=== PATIENT | female | born 1995 | race Hispanic/Latino ===

== ENCOUNTER 2019-10-15 23:46 | Emergency (ER) | payer BC, OTHER ==
--- OUTSIDE RECORDS SUMMARY | 2019-10-15 23:48 | XMS REPORT ---
:1995 [facility] Address [address] [place] [address] [address]. [address] [place] [address] Care Team Providers Name Role Phone Unavailable Unavailable Unavailable Problems This patient has no known problems. Allergies, Adverse Reactions, Alerts This patient has no known allergies or adverse reactions. Medications This patient has no known medications.
[2019-10-16 00:20] LABS: Urine Blood TRACE (NEG); Urine Glucose 2+ (NEG); Urine Protein NEGATIVE (NEG); Urine Specific Gravity 1.015 (1.005-1.030)
[2019-10-16 00:25] LABS: Urine Bacteria <20 /HPF (<20); Urine Culture Reflex Order REFLEXED
--- NOTE | 2019-10-16 00:32 | EDPHYS ---
Physician Documentation [facility] Name: Leah Miller Age: 24 yrs Sex: Female : 1995 Arrival Date: 10/15/2019 Time: 23:47 Bed 15 Private MD: ED Physician Nasim Brady HPI: 10/16 00:16 This 24 yrs old Female presents to ER via Ambulatory with complaints of kb Vaginal Pain. 00:16 The patient presents with perineal itching, vaginal discharge, that is a small amount kb of white discharge. Onset: The symptoms/episode began/occurred yesterday. Modifying factors: The symptoms are alleviated by nothing, the symptoms are aggravated by urinating, wiping. Associated signs and symptoms: Pertinent positives: vaginal discharge, vaginal pain and itching. Severity of symptoms: At their worst the symptoms were moderate, in the emergency department the symptoms are unchanged. The patient is sexually active, reportedly has a single partner, does not use protection during intercourse. The patient has experienced a previous episode. The patient has not recently seen a physician. Historical: - Allergies: 00:46 No Known Allergies; fu - Immunization history:: Adult Immunizations not up to date. - Social history:: Smoking status: Patient/guardian denies using tobacco. - Ebola Screening: : No symptoms or risks identified at this time. ROS: 00:18 Constitutional: Negative for fever, chills, and weight loss, ENT: Negative for injury, kb pain, and discharge, Neck: Negative for injury, pain, and swelling, Cardiovascular: Negative for chest pain, palpitations, and edema, Respiratory: Negative for shortness of breath, cough, wheezing, and pleuritic chest pain, Abdomen/GI: Negative for abdominal pain, nausea, vomiting, diarrhea, and constipation, Back: Negative for injury and pain, MS/Extremity: Negative for injury and deformity, Skin: Negative for injury, rash, and discoloration, Neuro: Negative for headache, weakness, numbness, tingling, and seizure. 00:18 : Positive for vaginal discharge, vaginal itching. Exam: 00:15 Constitutional: This is a well developed, well nourished patient who is awake, alert, kb and in no acute distress. Head/Face: Normocephalic, atraumatic. ENT: Nares patent. No nasal discharge, no septal abnormalities noted. Tympanic membranes are normal and external auditory canals are clear. Oropharynx with no redness, swelling, or masses, exudates, or evidence of obstruction, uvula midline. Mucous membranes moist. Neck: Trachea midline, no thyromegaly or masses palpated, and no cervical lymphadenopathy. Supple, full range of motion without nuchal rigidity, or vertebral point tenderness. No Meningismus. Chest/axilla: Normal chest wall appearance and motion. Nontender with no deformity. No lesions are appreciated. Cardiovascular: Regular rate and rhythm with a normal S1 and S2. No gallops, murmurs, or rubs. Normal PMI, no JVD. No pulse deficits. Respiratory: Lungs have equal breath sounds bilaterally, clear to auscultation and percussion. No rales, rhonchi or wheezes noted. No increased work of breathing, no retractions or nasal flaring. Abdomen/GI: Soft, non-tender, with normal bowel sounds. No distension or tympany. No guarding or rebound. No evidence of tenderness throughout. Back: No spinal tenderness. No costovertebral tenderness. Full range of motion. Skin: Warm, dry with normal turgor. Normal color with no rashes, no lesions, and no evidence of cellulitis. MS/ Extremity: Pulses equal, no cyanosis. Neurovascular intact. Full, normal range of motion. Neuro: Awake and alert, GCS 15, oriented to person, place, time, and situation. Cranial nerves II-XII grossly intact. Motor strength 5/5 in all extremities. Sensory grossly intact. Cerebellar exam normal. Normal gait. 00:15 : Pelvic Exam: External exam: erythema is noted, excoriation noted. Vital Signs: 00:15 BP 127 / 86; Pulse 96; Resp 18; Temp 98; Pain 0/10; fu 00:36 BP 117 / 84; Pulse 98; Pulse Ox 98% ; Pain 0/10; fu MDM: 10/15 23:53 Patient medically screened. kb 10/16 00:15 Data reviewed: vital signs, nurses notes. Data interpreted: Pulse oximetry: on room air kb is 100 %. Interpretation: normal. 00:30 Counseling: I had a detailed discussion with the patient and/or guardian regarding: the kb historical points, exam findings, and any diagnostic results supporting the discharge/admit diagnosis, lab results, the need for outpatient follow up, an OB/Gyne specialist, to return to the emergency department if symptoms worsen or persist or if there are any questions or concerns that arise at home. 10/15 23:59 Order name: Urine Microscopic Only; Complete Time: 00:26 kb 10/16 00:14 Order name: Urine Dipstick--Ancillary (enter results) kb 10/16 00:14 Order name: Urine --Ancillary (enter results) kb 10/16 00:20 Order name: Urine --Ancillary; Complete Time: 00:21 EDUT 10/16 00:20 Order name: Urine Dipstick-Ancillary; Complete Time: 00:21 EDUT 10/16 00:27 Order name: Urine Culture EDUT 10/15 23:59 Order name: Urine Test (obtain specimen); Complete Time: 00:31 kb 10/15 23:59 Order name: Urine Dipstick-Ancillary (obtain specimen); Complete Time: 00:29 kb Administered Medications: 00:34 Drug: DiFLUcan 150 mg Route: PO; fu 00:44 Follow up: Response: No adverse reaction fu Disposition: 01:13 Co-signature as Attending Physician, Nasim Brady MD. rn Disposition: 10/16/19 00:30 Discharged to Home. Impression: Candidiasis of vulva and vagina. - Condition is Stable. - Discharge Instructions: Vaginal Yeast Infection, Adult. - Medication Reconciliation Form, Thank You Letter, Antibiotic Education, Prescription Opioid Use form. - Follow up: Emergency Department; When: As needed; Reason: Worsening of condition. Follow up: Private Physician; When: 2 - 3 days; Reason: Recheck today's complaints, Continuance of care, Re-evaluation by your physician. Signatures: Dispatcher [employer] [facility] Marilee Bhatia, CNA INSTRUCTOR-C CNA INSTRUCTOR-Nasim Enamorado MD MD rn Severiano Velasquez RN RN fu Corrections: (The following items were deleted from the chart) 00:48 00:30 10/16/2019 00:30 Discharged to Home. Impression: Candidiasis of vulva and vagina. fu Condition is Stable. Forms are Medication Reconciliation Form, Thank You Letter, Antibiotic Education, Prescription Opioid Use. Follow up: Emergency Department; When: As needed; Reason: Worsening of condition. Follow up: Private Physician; When: 2 - 3 days; Reason: Recheck today's complaints, Continuance of care, Re-evaluation by your physician. kb
--- NOTE | 2019-10-16 00:32 | ER ---
Nurse's Notes [facility] Name: Leah Miller Age: 24 yrs Sex: Female : 1995 Arrival Date: 10/15/2019 Time: 23:47 Bed 15 Private MD: Diagnosis: Candidiasis of vulva and vagina Presentation: 10/15 23:56 Presenting complaint: Patient states: vaginal pain, with whitish discharges. Transition fu of care: patient was not received from another setting of care. Onset of symptoms was October 14, 2019. Risk Assessment: Do you want to hurt yourself or someone else? Patient reports no desire to harm self or others. Initial Sepsis Screen: Does the patient meet any 2 criteria? No. Patient's initial sepsis screen is negative. Does the patient have a suspected source of infection? No. Patient's initial sepsis screen is negative. Care prior to arrival: None. 23:56 Method Of Arrival: Ambulatory fu 23:56 Acuity: DEYSI 3 fu Historical: - Allergies: 10/16 00:46 No Known Allergies; fu - Immunization history:: Adult Immunizations not up to date. - Social history:: Smoking status: Patient/guardian denies using tobacco. - Ebola Screening: : No symptoms or risks identified at this time. Screenin:37 Abuse screen: Denies threats or abuse. Nutritional screening: No deficits noted. fu Tuberculosis screening: No symptoms or risk factors identified. Fall Risk None identified. Assessment: 10/15 23:58 General: Appears in no apparent distress. Behavior is calm, cooperative, appropriate fu for age, Denies fever, feeling ill, fatigue, chills. Pain: Denies pain. Neuro: Level of Consciousness is awake, alert, obeys commands, Oriented to person, place, time, situation, Hospital Director are equal bilaterally Moves all extremities. Gait is steady, Speech is normal, Facial symmetry appears normal. Cardiovascular: Denies chest pain, Heart tones S1 S2. Respiratory: Airway is patent Breath sounds are clear bilaterally. GI: No signs and/or symptoms were reported involving the gastrointestinal system. : Reports vaginal pain with whitish discharges and stated "hurts to wipe" Denies vaginal bleeding. EENT: No signs and/or symptoms were reported regarding the EENT system. Derm: No signs and/or symptoms reported regarding the dermatologic system. Musculoskeletal:. Musculoskeletal: No signs and/or symptoms reported regarding the musculoskeletal system. Vital Signs: 10/16 00:15 BP 127 / 86; Pulse 96; Resp 18; Temp 98; Pain 0/10; fu 00:36 BP 117 / 84; Pulse 98; Pulse Ox 98% ; Pain 0/10; fu ED Course: 10/15 23:47 Patient arrived in ED. cf2 23:51 Marilee Bhatia FNP-C is [facility]. kb 23:51 Nasim Brady MD is Attending Physician. kb 23:53 Severiano Velasquez, RN is Primary Nurse. fu 23:58 Triage completed. fu 10/16 00:38 Patient has correct armband on for positive identification. Placed in gown. Bed in low fu position. Call light in reach. 00:44 No provider procedures requiring assistance completed. Patient did not have IV access fu during this emergency room visit. Administered Medications: 00:34 Drug: DiFLUcan 150 mg Route: PO; fu 00:44 Follow up: Response: No adverse reaction fu Outcome: 00:30 Discharge ordered by . kb 00:45 Discharged to home ambulatory, with family. fu 00:45 Condition: stable 00:45 Discharge instructions given to patient, Instructed on discharge instructions, Demonstrated understanding of instructions. 00:48 Patient left the ED. fu Signatures: Marilee Bhatia FNP-C FNP-Ckb Umadhay, Felix, RN RN FrancoisCayetano cf2
[2019-10-16] MEDS ORDERED: FLUCONAZOLE 100 MG TAB ONE (00:33)
[2019-10-16 01:23] VITALS: TEMP 98
[2019-10-16 01:24] VITALS: BP 117/84; O2SAT 98
== END 2019-10-16 00:48 | disposition home or self-care (01) ==
LOC: ER 23:46
DX: B37.3 Candidiasis of vulva and vagina (principal)
CPT/HCPCS: 81003; 81015; 81025; 87077; 87086; 87088; 87186; 99283

== ENCOUNTER 2021-10-07 17:10 | Emergency (ER) | payer BC ==
--- OUTSIDE RECORDS SUMMARY | 2021-10-07 17:13 | XMS REPORT | Continuity of Care Document ---
:1995 Author Organization [facility] t Address [address] [place] [address] Care Team Providers Name Role Phone Davy Packer DO Attending Clinician [place] Attending Clinician Unavailable Stephania Dai NP Attending Clinician Payers Payer Name Policy Type Policy Number Effective Date Expiration Date S [facility] [place] [id number] 2018 00:00:00 OUT OF STATE Advance Directives Directive Decision Effective Termination Comments Source Date Date Healthcare Agents on N/A Univ ersity FileNameRelationshipHealthcare of [place] Agent Medical RelationshipCommunicationBl[facility] ArraMotherHealth Care [phone] (Mobile) Problems Condition Condition Condition Status Onset Resolution Last Treating Co mments Source Name Details Category Date Date Treatment Clinician Date Obesity Obesity Disease Active 2018-10 Univers (BMI (BMI 0-08 ity of 30-39.9) 30-39.9) 00:00: [place] 00 Medical Branch Irregular Irregular Disease Active Uni vers uterine uterine 5-13 ity of contract[place] Medical Branch 37 weeks 37 weeks Disease Active Unive rs gestation gestation 5-12 ity of of of 00:00: [place] 00 [facility] Branch Elevated Elevated Disease Active Overview: Un rachel blood blood 5-12 Plan to ity of pressure pressure 00:00: r/o [place] complicati complicati 00 pre-eclam Medical ng ng psia on Branch , , admission antepartum antepartum , third , third trimester trimester [facility] Disease Active Overview: [facility] ers nervous nervous 5-04 Enlarged ity of system system 00:00: cisterna [place] malformati malformati 00 magna-not Medical on in on in ilda pedi Branch fetus in fetus in at delivery Gestationa Gestationa Disease Active 2015-10 Overview : Univers l diabetes l diabetes 1-03 Failed it y of mellitus, mellitus, 00:00: 1hr gtt Ej as antepartum antepartum 00 Me dical Branch Supervisio Supervisio Disease Active 2015-10 U nivers n of high n of high 10-09 ity of risk risk 00:00: [place] , , 00 Me dical antepartum antepartum Br anch Obesity Obesity Disease Active 2015-10 Univers affecting affecting 10-09 [place] History of History of Disease Active 2015-10 U nivers anxiety anxiety 10-09 ity of 00:00: [place] 00 Medical Branch Anxiety Anxiety Disease Active Overview: [facility] ers has ity of anxiety [place] attacks, Medical last Branch incidence 2014 Allergies, Adverse Reactions, Alerts Allergy Allergy Status Severity Reaction(s) Onset Inactive Treating Comm ents Source Name Type Date Date Clinician NO KNOWN Drug Active Univers ALLERGIE Class ity of S [place] [facility] [place] Social History Social Habit Start Date Stop Date Quantity Comments Source Exposure to Not sure [place] [facility] SARS[facility] (event[facility] Branch Alcohol intake 2020-04-25 2020-04-25 Current drinker Unive rsity of 00:00:00 00:00:00 of alcohol [place] [facility] (finding) Branch Tobacco use and 2020-04-25 2020-04-25 Never used Universit y of exposure 00:00:00 00:00:00 [facility] Alcohol Comment 2016-08-09 2016-08-09 socially drinking Un iversity of 00:00:00 00:00:00 only, none since [place] Me dical Branch History of 2013-10-08 Cigarette Smoker Universi ty of tobacco use 00:00:00 [facility] Sex Assigned At [birth year] Universit y of 00:00:00 00:00:00 [facility] Smoking Status Start Date Stop Date Source Former smoker 2020-04-25 00:00:00 2020-04-25 00:00:00 Universi ty of [facility] Medications Ordered Filled Start Stop Current Ordering Indication Dosage Frequency Signature Comments Components Source Medication Medication Date Date Medication? Clinician (SIG) Name Name chon- 2020- No 1{tbl} 1 tablet, [facility] acetaminoph 04-25 Oral, ONCE i ty of en-caff 21:30: 21:19 NOW, 1 [place] (ESGIC) 00 :00 dose, [place] [facility] 50-325-40 04/25/20 at Bran ch mg tablet 1 1630, tablet Routine diphenhydrA 2019- No 25mg 25 mg, Uni vers MINE 04-25 Slow IV ity of (BENADRYL) 21:15: 21:25 Push, [place] injection 00 :00 ONCE, 1 Medical 25 mg dose, [facility] 04/25/20 at 1615, STAT metoclopram 2019- No 10mg 10 mg, Uni vers jeffrey HCl 04-25 Slow IV ity of (REGLAN) 21:15: 21:23 Push, [place] injection 00 :00 ONCE, 1 Medical 10 mg dose, [facility] 04/25/20 at 1615, CHICHI dexamethaso 2019- No 10mg 10 mg, IV Univers ne 04-25 Push, ity of (DECADRON 21:15: 22:05 ONCE, 1 [place] PHOSPHATE) 00 :00 dose, [facility] kusum injection 04/25/20 at Bran ch 10 mg 1615, STAT ketorolac 2019- No 30mg 30 mg, Unive rs (TORADOL) 04-25 Slow IV ity of injection 21:15: 21:23 Push, [place] 30 mg 00 :00 ONCE, 1 Medical dose, [facility] 04/25/20 at 1615, Routine
cruise staff member approving Restricted medication : SAEID JAS G NaCl 0.9% 2020- No 1000mL at 999 Uni vers (NS) bolus 04-25 mL/hr, ity of infusion 20:30: 00:20 1,000 mL, Ej as 1,000 mL 00 :00 IV Medical Infusion, Branch ONCE, 1 dose, [place] 04/25/20 at 1530, CHICHI albuterol 2020-0 Yes [id number] 2{puff} Inhale 2 Univers 90 7-19 Puffs ity of mcg/actuati 00:00: every 4 Ej as on inhaler 00 (four) Medical hours as Branch needed for Wheezing or Shortness of Breath. benzonatate 2020-0 Yes [id number] 100mg Take 1 Univers 100 mg 7-19 capsule by ity of capsule 00:00: mouth 3 [place] 00 (three) Medical times Branch daily as needed for Cough. albuterol 2020-0 Yes [id number] 2{puff} Inhale 2 Univers 90 7-19 Puffs ity of mcg/actuati 00:00: every 4 Ej as on inhaler 00 (four) Medical hours as Branch needed for Wheezing or Shortness of Breath. benzonatate 2020-0 Yes [id number] 100mg Take 1 Univers 100 mg 7-19 capsule by ity of capsule 00:00: mouth 3 00 (three) Medical times Branch daily as needed for Cough. norethindro 2020-0 Yes .35mg Take 1 Uni vers ne 0.35 mg 1-13 tablet by ity of tablet 00:00: mouth [place] 00 daily. Medical Branch norethindro 2020-0 Yes .35mg Take 1 Uni vers ne 0.35 mg 1-13 tablet by ity of tablet 00:00: mouth [place] 00 daily. Medical Branch Nitrofurant 2020-0 Yes [id number] 100mg Take 1 Univers oin&Nit. 1-12 capsule by ity o f Macrocryst 00:00: mouth 2 [place] (MACROBID) 00 (two) Medical 100 mg times Branch capsule daily. traMADol 2020-0 Yes [id number] 50mg Take 1 Uni vers (ULTRAM) 50 1-12 tablet by ity of mg tablet 00:00: mouth [place] 00 every 6 Medical (six) Branch hours as needed for Pain (scale 7-10). Nitrofurant 2020-0 Yes [id number] 100mg Take 1 Univers oin&Nit. 1-12 capsule by ity o f Macrocryst 00:00: mouth 2 [place] (MACROBID) 00 (two) Medical 100 mg times Branch capsule daily. traMADol 2020-0 Yes [id number] 50mg Take 1 Uni vers (ULTRAM) 50 1-12 tablet by ity of mg tablet 00:00: mouth [place] 00 every 6 Medical (six) Branch hours as needed for Pain (scale 7-10). metroNIDAZO 2018-10 Yes [id number] 500mg Take 1 Univers LE 500 mg 0-09 tablet by ity o f tablet 00:00: mouth [place] 00 every 12 Medical (twelve) Branch hours. metroNIDAZO 2018-10 Yes [id number] 500mg Take 1 Univers LE 500 mg 0-09 tablet by ity o f tablet 00:00: mouth [place] 00 every 12 Medical (twelve) Branch hours. Yes 1{tbl} Take 1 Unive rs vitamin 5-15 tablet by ity of w/FA tablet 00:00: mouth [place] 00 daily. Medical Branch docusate Yes 240mg Take 1 Univer s calcium 240 5-15 capsule by it y of mg capsule 00:00: mouth [place] 00 daily as Medical needed for Branch Constipati on. ferrous Yes 325mg Take 1 Univers sulfate 325 5-15 tablet by ity of mg (65 mg 00:00: mouth 2 [place] iron) 00 (two) Medical tablet times Branch daily. acetaminoph Yes 1{tbl} Take 1-2 Univers en-codeine 5-15 tablets by ity of 300-30 mg 00:00: mouth [place] tablet 00 every 6 Medical (six) Branch hours as needed for Pain (scale 1-3) or Pain (scale 4-6). For patients < 12 years recommend do not exceed 5 doses or 2.6 gm in 24 hours totals for all acetaminop hen containing products. For adults with normal hepatic function recommend do not exceed 3 grams in 24 hours for all acetaminop hen containing products. ibuprofen Yes 600mg Take 1 Unive rs 600 mg 5-15 tablet by ity of tablet 00:00: mouth [place] 00 every 6 Medical (six) Branch hours as needed for Pain (scale 1-3) or Pain (scale 4-6). Take with food or milk. Yes 1{tbl} Take 1 Unive rs vitamin 5-15 tablet by ity of w/FA tablet 00:00: mouth [place] 00 daily. Medical Branch docusate Yes 240mg Take 1 Univer s calcium 240 5-15 capsule by it y of mg capsule 00:00: mouth once [place] 00 daily as Medical needed for Branch Constipati on. ferrous Yes 325mg Take 1 Univers sulfate 325 5-15 tablet by ity of mg (65 mg 00:00: mouth 2 [place] iron) 00 (two) Medical tablet times Branch daily. acetaminoph Yes 1{tbl} Take 1-2 Univers en-codeine 5-15 tablets by ity of 300-30 mg 00:00: mouth [place] tablet 00 every 6 Medical (six) Branch hours as needed for Pain (scale 1-3) or Pain (scale 4-6). For patients < 12 years recommend do not exceed 5 doses or 2.6 gm in 24 hours totals for all acetaminop hen containing products. For adults with normal hepatic function recommend do not exceed 3 grams in 24 hours for all acetaminop hen containing products. ibuprofen Yes 600mg Take 1 Unive rs 600 mg 5-15 tablet by ity of tablet 00:00: mouth [place] 00 every 6 Medical (six) Branch hours as needed for Pain (scale 1-3) or Pain (scale 4-6). Take with food or milk. Immunizations Ordered Filled Immunization Date Status Comments [facility] Immunization Name Name [facility] 2017-07-09 Completed [facility] 2017-07-09 Completed University of 00:00:00 [facility] HPV9 2017-02-19 Completed University of 00:00:00 [facility] HPV9 2017-02-19 Completed University of 00:00:00 [facility] MMR 2017-02-18 Completed University of 00:00:00 [facility] MMR 2017-02-18 Completed University of 00:00:00 [facility] Vital Signs Vital Name Observation Time Observation Value Comments Source Systolic blood 2020-04-25 18:56:00 133 mm[Hg] Univer sity of pressure [facility] Diastolic blood 2020-04-25 18:56:00 99 mm[Hg] Unive rsity of pressure [facility] Heart rate 2020-04-25 18:56:00 113 /min [facility] Body temperature 2020-04-25 18:56:00 37.78 Mimi [facility] 2020-04-25 18:56:00 16 /min [facility] Body height 2020-04-25 18:56:00 180.3 cm [facility] Body weight 2020-04-25 18:56:00 108.863 kg Universi ty [facility] BMI 2020-04-25 18:56:00 33.47 kg/m2 Universi ty [facility] Oxygen saturation in 2020-04-25 18:56:00 97 /min University of Arterial blood by [facility] Pulse oximetry Branch Systolic blood 2020-04-25 18:56:00 133 mm[Hg] Univer sity of pressure [facility] Diastolic blood 2020-04-25 18:56:00 99 mm[Hg] Unive rsity of [facility] Heart rate 2020-04-25 18:56:00 113 /min [facility] Body temperature 2020-04-25 18:56:00 37.78 Mimi [facility] Respiratory rate 2020-04-25 18:56:00 16 /min [facility] Body height 2020-04-25 18:56:00 180.3 cm Universi [facility] Body weight 2020-04-25 18:56:00 108.863 kg Universi ty [facility] BMI 2020-04-25 18:56:00 33.47 kg/m2 Universi [facility] Oxygen saturation in 2020-04-25 18:56:00 97 /min [place] [facility] Arterial blood by [facility] Pulse oximetry Branch Procedures Procedure Date / Time Performed Performing Clinician [facility] e HEPATIC FUNCTION PANEL 2020-04-25 22:05:00 Jas Dai [facility] ([id number]) [facility] Branch (ALB,T.PRO,BILI T,BU/BC,ALT,AST,ALK PHOS) BASIC METABOLIC PANEL 2020-04-25 22:05:00 Jas Dai [facility] (NA, K, CL, CO2, Medical Branch GLUCOSE, BUN, CREATININE, CA) CBC WITH DIFF 2020-04-25 22:05:00 Jas Dai [facility] XR CHEST 1 VW COVID 2020-04-25 21:35:47 Jas Dai [facility] URINALYSIS 2020-04-25 20:58:00 Jas Dai [facility] POCT TEST 2020-04-25 20:58:00 Jas Dai [facility] COVID-19 (ID NOW RAPID 2020-04-25 20:58:00 Jas Dai [facility] TESTING) [facility] CONSENT/REFUSAL FOR 2020-04-25 18:29:34 Doctor Unassigned, No Un [facility] DIAGNOSIS AND Name [facility] TREATMENT Encounters Start End Encounter Admission Attending Care Care Encounter Source Date/Time Date/Time Type Type Clinicians Facility Department ID 2021-08-05 Emergency [facility] [id number] [facility] 2020-12-28 2020-12-28 Patient [facility] [id number] Univers 00:00:00 00:00:00 Outreach Estebanyani KOWALSKI [id number] dominique [facility] [id number] [facility] [id number] [address] 2020-07-15 2020-07-15 [facility] [id number] Univers 08:30:00 08:30:00 JAN [id number] [facility] 2020-07-15 2020-07-15 Outpatient Candelaria COLEMAN [facility] [id number] Univers 08:30:00 08:30:00 [facility] 2020-04-25 2020-04-25 Emergency [facility] [id number] 14:14:18 19:32:00 Jas [place] [id number] [place] [id number] [facility] [id number] [facility] 2020-04-25 2020-04-25 Emergency [facility] [id number] Univers 14:14:18 19:32:00 [facility] [place] [id number] [id number] [facility] [id number] [address] Results Test Description Test Time Test Comments Results Result Comments Source Basic Metabolic Panel (NA, K, CL, CO2, GLUCOSE, BUN, 2020-04 22:53:00 CREATININE, CA) Test Item Value Reference Range Interpretation Comme nts NA (test code = 7533580886) 135 mmol/L 135-145 K (test code = 7058836936) 3.5 mmol/L 3.5-5 CL (test code = 6679641757) 107 mmol/L 98-108 CO2 TOTAL (test code = 8513811187) 21 mmol/L 23-31 L AGAP (test code = 7733234285) 2-16 BUN (test code = 2196911319) 9 mg/dL 7-23 GLUCOSE (test code = 0252159350) 121 mg/dL 70-110 H CREATININE (test code = 0.47 mg/dL 0.5-1.04 L 4677283571) CALCIUM (test code = 3230222126) 8.5 mg/dL 8.6-10.6 L eGFR Calculation (Non- mL/min/1.73m2 [place]) (test code = 5645188324) eGFR Calculation ( mL/min/1.73m2 [place]) (test code = 3367001316) PK (test code = PK) Association of Glomerular Filtration Rate (GFR) and Staging of Kidney Disease* + +-------- + ------+| GFR (mL/min/1.73 m2) ?| With Kidney Damage ?| ?Without Kidney Damage+ +-- + +| ?>90 ?| ?Stage one ?| ? Normal ?+ +------- + -------+| ?60-89 ?| ?Stage two ?| ? Decreased GFR ? + +-------- + ------+| ?30-59 ?| ?Stage three ?| ? Stage three ? + +-------- + ------+| ?15-29 ?| ?Stage four ? | ? Stage four ?+ +------- + -------+| ?<15 (or dialysis) ? ?| ?Stage five ? | ? Stage five ?+ +------- + -------+ *Each stage assumes the associated GFR level has been in effect for at least three months. ?Stages 1 to 5, with or without kidney disease, indicate chronic kidney disease. Notes: Determination of stages one and two (with eGFR >59mL/min/1.73 m2) requires estimation of kidney damage for at least three months as defined by structural or functional abnormalities of the kidney, manifested by either:Pathological abnormalities or Markers of kidney damage (including abnormalities in the composition of the blood or urine or abnormalities in imaging tests). Lab Interpretation (test code = Abnormal 44458-2) [place] [facility] (ALB, T.PRO, BILI T, BU/BC, ALT, AST, ALK PHOS)2020-04-25 22:53:00 Test Item Value Reference Range Interpretation Comments TOTAL BILI (test code = 3617623121) 0.4 mg/dL 0.1-1.1 BILI UNCON (test code = 6499420545) 0.5 mg/dL 0.1-1.1 BILI CONJ (test code = 5581585253) 0.0 mg/dL 0-0.3 T PROTEIN (test code = 7252853496) 7.5 g/dL 6.3-8.2 ALBUMIN (test code = 7935139611) 3.9 g/dL 3.5-5 ALK PHOS (test code = 9890715794) 50 U/L 34-122 ALTv (test code = 1742-6) 112 U/L 5-35 H AST(SGOT) (test code = 0677419690) 79 U/L 13-40 H Lab Interpretation (test code = Abnormal 29219-0) [place] [facility] HospitalCBC with [id number] 22:31:00 Test Item Value Reference Range Interpretation Comments WBC (test code = See_Comment L [Automated 9490-2) message] The sy stem which generated this result transmitted reference range : 4.30 - 11.10 10*3/?L. The reference range was not used to interpret this result as normal/abnormal . RBC (test code = See_Comment [Automated 109-8) message] The sy stem which generated this result transmitted reference range : 3.93 - 5.25 10*6/?L. The reference range was not used to interpret this result as normal/abnormal . HGB (test code = 12.9 g/dL 11.6-15 718-7) HCT (test code = 37.7 % 35.7-45.2 4544-3) MCV (test code = 83.8 fL 80.6-95.5 787-2) MCH (test code = 28.7 pg 25.9-32.8 785-6) MCHC (test code = 34.2 g/dL 31.6-35.1 786-4) RDW-SD (test code = 38.6 fL 39-49.9 L 23992-4) RDW-CV (test code = 12.8 % 12-15.5 788-0) PLT (test code = See_Comment [Automated 777-3) message] The sy stem which generated this result transmitted reference range : 166 - 358 10*3/ ?L. The reference r rama was not used to interpret this result as normal/abnormal . MPV (test code = 11.0 fL 9.5-12.9 67848-3) NRBC/100 WBC (test See_Comment [Automat ed code = 5234875030) message] The system which generated this result transmitted reference range : 0.0 - 10.0 /100 WBCs. The refer ence range was not u sed to interpret th is result as normal/abnormal . NRBC x10^3 (test code <0.01 See_Comment [Auto mated = 4260102091) message] The s ystem which generated this result transmitted reference range : 10*3/?L. The reference range was not used to interpret this result as normal/abnormal . GRAN MAT (NEUT) % 54.0 % (test code = 770-8) IMM GRAN % (test code 0.60 % = 6126825366) LYMPH % (test code = 38.9 % 736-9) MONO % (test code = 6.2 % 5905-5) EOS % (test code = 0.0 % 713-8) BASO % (test code = 0.3 % 706-2) GRAN MAT x10^3(ANC) 1.82 10*3/uL 1.88-7.09 L (test code = 2513457364) IMM GRAN x10^3 (test <0.03 0-0.06 code = 9495810084) LYMPH x10^3 (test code 1.31 10*3/uL 1.32-3.29 L = 731-0) MONO x10^3 (test code 0.21 10*3/uL 0.33-0.92 L = 742-7) EOS x10^3 (test code = <0.03 0.03-0.39 L 711-2) BASO x10^3 (test code <0.03 0.01-0.07 = 704-7) Lab Interpretation Abnormal (test code = 81982-9) [place] [facility] 1 VW [id number] 22:26:13 1. Abnormal changes in the right lower lobe suggestive of pneumonia,including COVID-19 pneumonia. Disclaimer: Generally, the findings on chest imaging in COVID-19 are notspecific, and overlap with other infections, including influenza, H1N1,SARS and MERS.According to the Centers for Disease Control (CDC) and the [place] [employer], viral testing remains the only specific method of diagnosiseven if CXR or CT findings are suggestive of COVID-19. PROCEDURE: CHEST XRAY 1 view, CLINICAL INDICATION: fever, cough , SOB COMPARISON: None FINDINGS: Lungs: An abnormal opacity is seen in the rightlower lobe. Left lung isrelatively clear. Pleura: No pleural effusion or pneumothorax is seen. The heart is normal insize. No acute bony abnormality. [facility], Radiant Results Inft User - 04/25/2020 5:27 PM CDTPROCEDURE: CHEST XRAY 1 view, CLINICAL INDICATION: fever, cough , SOB COMPARISON: NoneFINDINGS:Lungs: An abnormal opacity is seen in the right lower lobe. Left lung isrelatively clear.Pleura: No pleural effusion or pneumothorax is seen. The heart is normal insize.No acute bony abnormality.IMPRESSION1. Abnormal changes in the right lower lobe suggestive of pneumonia,including COVID-19 pneumonia.Disclaimer: Generally, the findings on chest imaging in COVID-19 are notspecific, and overlap with other infections, including influenza, H1N1,SARS and MERS.According to the Centers for Disease Control (CDC) and the [place] [employer], viral testing remains the only specific method of diagnosiseven if CXR or CT findings are suggestive of COVID-19.[place] [facility] Hospital[facility]inalysis 2020-04-25 21:58:00 Test Item Value Reference Range Interpretation Comments APPEARANCE (test code = Hazy Clear A 8591489064) COLOR (test code = Tsering Yellow A 1152867286) PH (test code = 4.8-8.0 5104429986) SP GRAVITY (test code = 1.003-1.030 3729397130) GLU U QUAL (test code = Normal Normal 9021134052) BLOOD (test code = Negative Negative 7170082068) KETONES (test code = Negative Negative 4956819226) PROTEIN (test code = Negative Negative 2887-8) UROBILIN (test code = 2.0 mg/dL Normal A 5057183915) BILIRUBIN (test code = Negative Negative 1118430300) NITRITE (test code = Negative Negative 2570210836) LEUK KWASI (test code = Negative Negative 6952586269) RBC/HPF (test code = See_Comment [Autom ated message] 0222222304) The system [employer] generated this result transmit julita reference range : 0 - 3 HPF. The refe rence range was not u sed to interpret th is result as normal/abnormal . WBC/HPF (test code = See_Comment [Autom ated message] 5436015232) The system [employer] generated this result transmit julita reference range : 0 - 5 HPF. The refe rence range was not u sed to interpret th is result as normal/abnormal . BACTERIA (test code = Few Negative A 5220000737) MUCOUS (test code = Marked Negative LPF A 1730907998) SQ EPITH (test code = HPF 8585888785) HYAL CAST (test code = See_Comment [Aut omated message] 2476043071) The system [employer] generated this result transmit julita reference range : <=2 LPF. The refere nce range was not u sed to interpret th is result as normal/abnormal . Lab Interpretation (test Abnormal code = 34164-1) [place] [facility] HospitalCOVID-19 (ID NOW RAPID TESTING)2020-04-25 21:42:00 Test Item Value Reference Range Interpretation Comments SARS-CoV-2 Rapid ID NOW Positive Not Detected A (test code = 51139-8) PK (test code = PK) ID NOW COVID-19 Assay is an isothermal nucleic acid amplification test intended for the qualitative detection of nucleic acid from SARS-CoV-2 viral RNA in nasopharyngeal (NOXIOUS WEEDS AND PEST INSPECTOR) specimens. It is used under Emergency Use Authorization (EUA) by FDA. The limit of detection (LOD) of the assay is 125 Genome Equivalents/mL. A positive result is indicative of the presence of SARS-CoV-2 RNA. ?Clinical correlation with patient history and other diagnostic information is necessary to determine patient infection status. A negative (Not Detected) result does not preclude SARS-CoV-2 infection. In patients with clinical symptoms and other tests that are consistent with SARS-CoV-2 infection, negative results should be treated as presumptive negative and a new specimen should be tested with alternative PCR molecular test. Invalid: Please collect a new specimen for repeat patient testing if clinically indicated. Lab Interpretation Abnormal (test code = 65400-6) [place] [facility] HospitalPOCT [id number] 20:58:00 Test Item Value Reference Range Interpretation Comments POCT PREG (test code = 1605) negative On board controls acceptable with present C Line (test code = 3574) POCT PREG LOT # (test code = 3575) [id number] POCT PREG TEST DATE (test 05-07-2021 code = 3576) Lab Interpretation (test code = Normal 23896-6) [facility]"
--- NOTE | 2021-10-07 22:16 | ER ---
Nurse's Notes [facility] Name: Leah Miller Age: 26 yrs Sex: Female : 1995 Arrival Date: 10/07/2021 Time: 17:13 Bed 10 Private MD: Diagnosis: Person with feared health complaint in whom no diagnosis is made Presentation: 10/07 18:01 Chief complaint: Patient states: bug in left ear onset 1.5 hours [employer], states she eo2 attempted to get it out with eardrops, unsuccessful. Pt denies AGUILAR, dizziness. Coronavirus screen: Vaccine status: Patient reports being unvaccinated. Client denies travel out of the [place] in the last 14 days. Ebola Screen: Patient negative for fever greater than or equal to 101.5 degrees Fahrenheit, and additional compatible Ebola Virus Disease symptoms Patient denies exposure to infectious person. Patient denies travel to an Ebola-affected area in the 21 days before illness onset. Initial Sepsis Screen: Does the patient meet any 2 criteria? No. Patient's initial sepsis screen is negative. Does the patient have a suspected source of infection? No. Patient's initial sepsis screen is negative. Risk Assessment: Do you want to hurt yourself or someone else? Patient reports no desire to harm self or others. Onset of symptoms was October 07, 2021. 18:01 Method Of Arrival: Ambulatory eo2 18:01 Acuity: DEYSI 4 eo2 Triage Assessment: 18:04 General: Appears in no apparent distress. uncomfortable, states she's uncomfortable as eo2 she can feel the bug moving in her ears. 18:07 General: Behavior is calm, cooperative. eo2 Historical: - Allergies: 18:04 No Known Allergies; eo2 - Home Meds: 18:04 metformin 1,000 mg Oral tab 1 tab 2 times per day [Active]; eo2 - PMHx: 18:04 Diabetes mellitus; eo2 - PSHx: 18:04 wisdom teeth extraction; eo2 - Immunization history:: Adult Immunizations up to date, Client reports having NOT received the Covid vaccine. - Social history:: Smoking status: Patient denies any tobacco usage or history of. Patient uses alcohol, occasionally. Vital Signs: 18:01 BP 132 / 70; Pulse 109; Resp 17; Temp 98.4; Pulse Ox 97% ; Weight 108.86 kg; Height 5 eo2 ft. 11 in. (180.34 cm); Pain 6/10; 18:37 BP 132 / 89 RA Sitting (auto/lg); mb4 21:59 BP 130 / 88; Pulse 104; Resp 16; Pulse Ox 100% on R/A; bb 18:01 Body Mass Index 33.47 (108.86 kg, 180.34 cm) eo2 ED Course: 17:13 Patient arrived in ED. mr 18:04 Triage completed. eo2 22:12 Marilee Bhatia FNP-C is [facility]. kb 22:12 Leroy Romero MD is Attending Physician. kb Administered Medications: No medications were administered Outcome: 22:15 Discharge ordered by . kb 22:31 Patient left the ED. kb Signatures: Marilee Bhatia FNP-C FNP-Jovana GabrielaRosalie mr ChiangFior RN RN Karyn Pierre mb4 Nidia Page RN RN eo2
--- NOTE | 2021-10-07 22:16 | EDPHYS ---
Physician Documentation [facility] Name: Leah Miller Age: 26 yrs Sex: Female : 1995 Arrival Date: 10/07/2021 Time: 17:13 Bed 10 Private MD: ED Physician Leroy Romero HPI: 10/07 22:13 This 26 yrs old Female presents to ER via Ambulatory with complaints of Bug in kb ear. 22:13 The patient or guardian reports the patient has a suspected foreign body, of the ear, kb on the left. The reported likely foreign body is an insect. Onset: The symptoms/episode began/occurred today. Current symptoms: foreign body sensation. Treatment Prior to Arrival: none. The patient has not experienced similar symptoms in the past. The patient has not recently seen a physician. Pt states a bug flew in her ear earlier. States she tried to flush it out, but it didn't work. . Historical: - Allergies: 18:04 No Known Allergies; eo2 - Home Meds: 18:04 metformin 1,000 mg Oral tab 1 tab 2 times per day [Active]; eo2 - PMHx: 18:04 Diabetes mellitus; eo2 - PSHx: 18:04 wisdom teeth extraction; eo2 - Immunization history:: Adult Immunizations up to date, Client reports having NOT received the Covid vaccine. - Social history:: Smoking status: Patient denies any tobacco usage or history of. Patient uses alcohol, occasionally. ROS: 22:13 Constitutional: Negative for fever, chills, and weight loss. kb 22:13 ENT: Positive for foreign body sensation. 22:13 All other systems are negative. Exam: 22:13 Constitutional: This is a well developed, well nourished patient who is awake, alert, kb and in no acute distress. Head/Face: Normocephalic, atraumatic. ENT: Moist Mucous membranes Respiratory: Respirations even and unlabored. No increased work of breathing. Talking in full sentences Skin: Warm, dry with normal turgor. Normal color. MS/ Extremity: Pulses equal, no cyanosis. Neurovascular intact. Full, normal range of motion. Neuro: Awake and alert, GCS 15, oriented to person, place, time, and situation. Moves all extremities. Normal gait. Psych: Awake, alert, with orientation to person, place and time. Behavior, mood, and affect are within normal limits. 22:13 ENT: External ear(s): are unremarkable, Ear canal(s): are normal, TM's: are normal. Vital Signs: 18:01 BP 132 / 70; Pulse 109; Resp 17; Temp 98.4; Pulse Ox 97% ; Weight 108.86 kg; Height 5 eo2 ft. 11 in. (180.34 cm); Pain 6/10; 18:37 BP 132 / 89 RA Sitting (auto/lg); mb4 21:59 BP 130 / 88; Pulse 104; Resp 16; Pulse Ox 100% on R/A; bb 18:01 Body Mass Index 33.47 (108.86 kg, 180.34 cm) eo2 MDM: 22:15 Data reviewed: vital signs, nurses notes. Data interpreted: Pulse oximetry: on room air kb is 100 %. Interpretation: normal. Counseling: I had a detailed discussion with the patient and/or guardian regarding: the historical points, exam findings, and any diagnostic results supporting the discharge/admit diagnosis, the need for outpatient follow up, a family practitioner, to return to the emergency department if symptoms worsen or persist or if there are any questions or concerns that arise at home. ED course: No FB in ear. 22:15 Patient medically screened. kb Administered Medications: No medications were administered Disposition: 10/08 06:40 Co-signature as Attending Physician, Leroy Romero MD. [email or web address] Disposition Summary: 10/07/21 22:15 Discharge Ordered Location: Home kb Condition: Stable kb Diagnosis - Person with feared health complaint in whom no diagnosis is made kb Followup: kb - With: Emergency Department - When: As needed - Reason: Worsening of condition Followup: kb - With: Private Physician - When: 2 - 3 days - Reason: Recheck today's complaints, Continuance of care, Re-evaluation by your physician Discharge Instructions: - Discharge Summary Sheet kb - Ear Foreign Body, [id number] kb Forms: - Medication Reconciliation Form kb - Thank You Letter kb - Antibiotic Education kb - Prescription Opioid Use kb Signatures: Marilee Bhatia, TRACYC JUAN R-Leroy Reid MD MD [facility] Nidia Page RN RN eo2
[2021-10-07 22:36] VITALS: TEMP 98.4
[2021-10-07 22:39] VITALS: BP 130/88; O2SAT 100
== END 2021-10-07 22:31 | disposition home or self-care (01) ==
LOC: ER 17:10
DX: Z03.823 Encounter for observation for suspected inserted (injected) foreign body ruled out (principal); T16.2XXA Foreign body in left ear, initial encounter; X58.XXXA Exposure to other specified factors, initial encounter; Y93.9 Activity, unspecified; Y92.9 Unspecified place or not applicable; E11.9 Type 2 diabetes mellitus without complications
CPT/HCPCS: 99281

== ENCOUNTER 2023-05-14 22:39 | Emergency (ER) | payer BC ==
--- OUTSIDE RECORDS SUMMARY | 2023-05-14 22:43 | XMS REPORT | Continuity of Care Document ---
:1995 Author Organization [facility] t Address [address] [place] [address] Care Team Providers Name Role Phone Esteban Packer DO Attending Clinician JAN COLEMAN Attending Clinician Unavailable Malaika PROBLEM MANAGER, Jas Cat Attending Clinician Payers Payer Name Policy Type Policy Number Effective Date Expiration Date S bria [facility] - [id number] 2018 00:00:00 OUT OF STATE Problems Condition Condition Condition Status Onset Resolution Last Treating Co mments Source Name Details Category Date Date Treatment Clinician Date Obesity Obesity Disease Active 2018-10 Univers (BMI (BMI 0-08 ity of 30-39.9) 30-39.9) 00:00: [place] 00 Medical Branch Irregular Irregular Disease Active Uni vers uterine uterine 5-13 ity of contract[place] Medical [place] 37 weeks 37 weeks Disease Active Unive rs gestation gestation 5-12 ity of of of 00:00: [place] 00 [facility] Branch Elevated Elevated Disease Active Overview: Un rachel blood blood 5-12 Plan to ity of pressure pressure 00:00: r/o [place] complicati complicati 00 pre-eclam Medical ng ng psia on Branch , , admission antepartum antepartum , third , third trimester trimester [facility] Disease Active Overview: Univ ers nervous nervous 5-04 Enlarged ity of system system 00:00: cisterna [place] malformati malformati 00 magna-not Medical on in on in ilda pedi Branch fetus in fetus in at delivery Gestationa Gestationa Disease Active 2015-10 Overview : Univers l diabetes l diabetes 1-03 Failed it y of mellitus, mellitus, 00:00: 1hr gtt Ej as antepartum antepartum 00 Ct dical Branch Supervisio Supervisio Disease Active 2015-10 U nivers n of high n of high 10-09 ity of risk risk 00:00: [place] , , 00 Me dical antepartum antepartum Br anch Obesity Obesity Disease Active 2015-10 Univers affecting affecting 10-09 [place] History of History of Disease Active 2015-10 U nivers anxiety anxiety 10-09 ity of 00:00: [place] [address] Medical Branch Anxiety Anxiety Disease Active Overview: Univ ers has ity of anxiety [facility], Medical last Branch incidence 2014 Allergies, Adverse Reactions, Alerts Allergy Allergy Status Severity Reaction(s) Onset Inactive Treating Comm ents Source Name Type Date Date Clinician NO KNOWN Drug Active Univers ALLERGIE Class ity of S [place] [facility] Social History Social Habit Start Date Stop Date Quantity Comments Source Exposure to Not sure Mikana of SARS-CoV-2 [facility] (event) Branch Alcohol intake 2020-04-25 2020-04-25 Current drinker Unive rsity of 00:00:00 00:00:00 of alcohol [facility] (finding) Branch Tobacco use and 2020-04-25 2020-04-25 Never used Universit y of exposure 00:00:00 00:00:00 [place] [facility] Alcohol Comment 2016-08-09 2016-08-09 socially drinking Un iversity of 00:00:00 00:00:00 only, none since [facility] dical Branch History of 2013-10-08 Cigarette Smoker Universi ty of tobacco use 00:00:00 [facility] Sex Assigned At [birth year] Universit y of 00:00:00 00:00:00 [place] [facility] Smoking Status Start Date Stop Date Source Former smoker 2020-04-25 00:00:00 2020-04-25 00:00:[facility] Medications Ordered Filled Start Stop Current Ordering Indication Dosage Frequency Signature Comments Components Source Medication Medication Date Date Medication? Clinician (SIG) Name Name chon- 2020- No 1{tbl} 1 tablet, Univers acetaminoph 7-19 07-19 Oral, ONCE i ty of en-caff 21:30: 21:19 NOW, 1 [place] (ESGIC) 00 :00 dose, [place] Medical 50-325-40 04/25/20 at Bran ch mg tablet 1 1630, tablet Routine diphenhydrA 2020- No 25mg 25 mg, Uni vers MINE 04-25 Slow IV ity of (BENADRYL) 21:15: 21:25 Push, [place] injection 00 :00 ONCE, 1 Medical 25 mg dose, [facility] 04/25/20 at 1615, STAT metoclopram 2020- No 10mg 10 mg, Uni vers jeffrey HCl 04-25 Slow IV ity of (REGLAN) 21:15: 21:23 Push, [place] injection 00 :00 ONCE, 1 Medical 10 mg dose, [facility] 04/25/20 at 1615, CHICHI dexamethaso 0 2020- No 10mg 10 mg, IV Univers ne 04-25 Push, ity of (DECADRON 21:15: 22:05 ONCE, 1 [place] PHOSPHATE) 00 :00 dose, [place] Medi kusum injection 04/25/20 at Bran ch 10 mg 1615, STAT ketorolac 2019- No 30mg 30 mg, Unive rs (TORADOL) 04-25 Slow IV ity of injection 21:15: 21:23 Push, [place] 30 mg 00 :00 ONCE, 1 Medical dose, [facility] 04/25/20 at 1615, Routine
sound ranging crewmember approving Restricted medication : JOSEFINA DAIALA G NaCl 0.9% 0 2020- No 1000mL at 999 Uni vers (NS) bolus 04-25 mL/hr, ity of infusion 20:30: 00:20 1,000 mL, Ej as 1,000 mL 00 :00 IV Medical Infusion, Branch ONCE, 1 dose, [place] 04/25/20 at 1530, CHICHI albuterol 2019-0 Yes [id number] 2{puff} Inhale 2 Univers 90 04-25 Puffs ity of mcg/actuati 00:00: every 4 Ej as on inhaler 00 (four) Medical hours as Branch needed for Wheezing or Shortness of Breath. benzonatate 2020-0 Yes [id number] 100mg Take 1 Univers 100 mg 7-19 capsule by ity of capsule 00:00: mouth 3 [place] 00 (three) Medical times Branch daily as needed for Cough. albuterol 2020-0 Yes [id number] 2{puff} Inhale 2 Univers 90 7-19 Puffs ity of mcg/actuati 00:00: every 4 Ej as on inhaler 00 (four) Medical hours as Branch needed for Wheezing or Shortness of Breath. benzonatate 2020-0 Yes [id number] 100mg Take 1 Univers 100 mg 7-19 [...] 00 daily. Medical Branch Nitrofurant 2020-0 Yes [id number] 100mg Take 1 Univers oin&Nit. 1-12 capsule by ity o f Macrocryst 00:00: [place] (MACROBID) 00 (two) Medical 100 mg times Branch capsule daily. traMADol 2020-0 Yes [id number] 50mg Take 1 Uni vers (ULTRAM) 50 1-12 tablet by ity of mg tablet 00:00: mouth [place] 00 every 6 Medical (six) Branch hours as needed for Pain (scale 7-10). Nitrofurant 2020-0 Yes [id number] 100mg Take 1 Univers oin&Nit. 1-12 capsule by ity o f Macrocryst 00:00: mouth 2 [place] (MACROBID) 00 (two) Medical 100 mg times Branch capsule daily. traMADol 2020-0 Yes [id number] 50mg Take 1 Uni vers (ULTRAM) 50 1-12 tablet by ity of mg tablet 00:00: mouth [place] 00 every 6 Medical (six) Branch hours as needed for Pain (scale 7-10). metroNIDAZO 2018-10 Yes [id number] 500mg Take 1 Univers LE 500 mg 0-09 tablet by ity o f tablet 00:00: mouth [place] 00 every 12 Medical (twelve) Branch hours. metroNIDAZO 2018-10 Yes [id number] 500mg Take 1 Univers LE 500 mg 0-09 tablet by ity o f tablet 00:00: mouth [place] 00 every 12 Medical (twelve) Branch hours. docusate Yes 240mg Take 1 Univer s [...] w/FA tablet 00:00: mouth [place] 00 daily. [facility] Immunizations Ordered Filled Immunization Date Status Comments Sour e Immunization Name Name [facility] 2017-07-09 Completed University of 00:00:00 [place] [id number] 2017-07-09 Completed University of 00:00:00 [facility] 2017-02-19 Completed University of 00:00:00 [facility] 2017-02-19 Completed University of 00:00:00 [facility] MMR 2017-02-18 Completed University of 00:00:00 [facility] MMR 2017-02-18 Completed University of 00:00:00 [facility] Vital Signs Vital Name Observation Time Observation Value Comments Source Systolic blood 2020-04-25 18:56:00 133 mm[Hg] Univer sity of pressure [facility] Diastolic blood 2020-04-25 18:56:00 99 mm[Hg] Unive rsity of pressure [facility] Heart rate 2020-04-25 18:56:00 113 /min [facility] Body temperature 2020-04-25 18:56:00 37.78 Mimi [facility] Res[facility] rate 2020-04-25 18:56:00 16 /min [facility] Body height 2020-04-25 18:56:00 180.3 cm [facility] Body weight 2020-04-25 18:56:00 108.863 kg [facility] BMI 2020-04-25 18:56:00 33.47 kg/m2 [facility] Oxygen saturation in 2020-04-25 18:56:00 97 /min Mikana of Arterial blood by [facility] [place] [facility] Pulse oximetry Branch Systolic blood 2020-04-25 18:56:00 133 mm[Hg] Univer sity of pressure [facility] Diastolic blood 2020-04-25 18:56:00 99 mm[Hg] Unive rsity of pressure [facility] Heart rate 2020-04-25 18:56:00 113 /min [facility] Body temperature 2020-04-25 18:56:00 37.78 Mimi [facility] Respiratory rate 2020-04-25 18:56:00 16 /min [facility] Body height 2020-04-25 18:56:00 180.3 cm [facility] Body weight 2020-04-25 18:56:00 108.863 kg [facility] BMI 2020-04-25 18:56:00 33.47 kg/m2 [facility] Oxygen saturation in 2020-04-25 18:56:00 97 /min [facility] Arterial blood by [facility] [place] [facility] Pulse oximetry [facility] Procedures Procedure Date / Time Performed Performing Clinician [facility] e HEPATIC FUNCTION PANEL 2020-04-25 22:05:00 Jas Dai [facility] ([id number]) Medical Branch (ALB,T.PRO,BILI T,BU/BC,ALT,AST,ALK PHOS) BASIC METABOLIC PANEL 2020-04-25 22:05:00 Jas Dai [facility] (NA, K, CL, CO2, Medical Branch GLUCOSE, BUN, CREATININE, CA) CBC WITH DIFF 2020-04-25 22:05:00 Jas Dai [facility] XR CHEST 1 VW COVID 2020-04-25 21:35:47 Jas Dai [facility] URINALYSIS 2020-04-25 20:58:00 Jas Dai [facility] POCT TEST 2020-04-25 20:58:00 Jas Dai [facility] COVID-19 (ID NOW RAPID 2020-04-25 20:58:00 Jas Dai [facility] TESTING) Medical Branch CONSENT/REFUSAL FOR 2020-04-25 18:29:34 Doctor Unassigned, No Un iversity of [place] DIAGNOSIS AND Name [facility] TREATMENT Encounters Start End Encounter Admission Attending Care Care Encounter Source Date/Time Date/Time Type Type Clinicians Facility Department ID 2021-08-05 Emergency [facility] [id number] Univers 07:32:[address] [facility] 2020-12-28 2020-12-28 Patient Ochoa [facility] [id number] Univers 00:00:00 00:00:00 Outreach Esteban PRIMARY [id number] i ty of [facility] [id number] [facility] [id number] [address] 2020-07-15 2020-07-15 [place] [id number] Univers 08:30:00 [facility]30:[facility] 2020-04-25 Emergency [facility] [id number] 14:14:18 19:32:00 Jas Cat [place] [id number] [place] 4.2.7.2.686 [place] [id number] 2020-04-25 2020-04-25 Emergency [facility] [id number] Univers 14:14:18 19:32:00 Jas Cat Yaw [id number] ity [facility] [id number] [facility] [id number] [address] Results Test Description Test Time Test Comments Results Result Comments Source Basic Metabolic Panel (NA, K, CL, CO2, GLUCOSE, BUN, 2020-04 22:53:00 CREATININE, CA) Test Item Value Reference Range Interpretation Comme nts NA (test code = 7535081234) 135 mmol/L 135-145 K (test code = 8234421807) 3.5 mmol/L 3.5-5 CL (test code = 3545931824) 107 mmol/L 98-108 CO2 TOTAL (test code = 0480484169) 21 mmol/L 23-31 L AGAP (test code = 4901027612) 2-16 BUN (test code = 5373202608) 9 mg/dL 7-23 GLUCOSE (test code = 6267309047) 121 mg/dL 70-110 H CREATININE (test code = 0.47 mg/dL 0.5-1.04 L 2145648893) CALCIUM (test code = 3390299335) 8.5 mg/dL 8.6-10.6 L eGFR Calculation (Non- mL/min/1.73m2 Lebanese) (test code = 1987393306) eGFR Calculation ( mL/min/1.73m2 Lebanese) (test code = 2368723635) PK (test code = PK) Association of [...] tests). Lab Interpretation (test code = Abnormal 37122-0) [facility] (ALB, T.PRO, BILI T, BU/BC, ALT, AST, ALK PHOS)2020-04-25 22:53:00 Test Item Value Reference Range Interpretation Comments TOTAL BILI (test code = 4180971856) 0.4 mg/dL 0.1-1.1 BILI UNCON (test code = 7590604982) 0.5 mg/dL 0.1-1.1 BILI CONJ (test code = 4538140511) 0.0 mg/dL 0-0.3 T PROTEIN (test code = 2034409114) 7.5 g/dL 6.3-8.2 ALBUMIN (test code = 4278461643) 3.9 g/dL 3.5-5 ALK PHOS (test code = 3321266048) 50 U/L 34-122 ALTv (test code = 1742-6) 112 U/L 5-35 H AST(SGOT) (test code = 6176140186) 79 U/L 13-40 H Lab Interpretation (test code = Abnormal 91704-4) [facility] with [id number] 22:31:00 Test Item Value Reference Range Interpretation Comments WBC (test code = See_Comment L [Automated 1090-2) message] The sy stem which generated this result transmitted reference range : 4.30 - 11.10 10*3/?L. The reference range was not used to interpret this result as normal/abnormal . RBC (test code = See_Comment [Automated 789-8) message] The sy stem which generated this [...] (test code = 38.6 fL 39-49.9 L 02107-2) RDW-CV (test code = 12.8 % 12-15.5 788-0) PLT (test code = See_Comment [Automated 777-3) message] The sy stem which generated this result transmitted reference range : 166 - 358 10*3/ ?L. The reference r rama was not used to interpret this result as normal/abnormal . MPV (test code = 11.0 fL 9.5-12.9 89615-0) NRBC/100 WBC (test See_Comment [Automat ed code = 4010308193) message] The system which generated this result transmitted reference range : 0.0 - 10.0 /100 WBCs. The refer ence range was not u sed to interpret th is result as normal/abnormal . NRBC x10^3 (test code <0.01 See_Comment [Auto mated = 0041814445) message] The s ystem which generated this result transmitted reference range : 10*3/?L. The reference range was not used to interpret this result as normal/abnormal . GRAN MAT (NEUT) % 54.0 % (test code = 770-8) IMM GRAN % (test code 0.60 % = 7686592804) LYMPH % (test code = 38.9 % 736-9) MONO % (test code = 6.2 % 5905-5) EOS % (test code = 0.0 % 713-8) BASO % (test code = 0.3 % 706-2) GRAN MAT x10^3(ANC) 1.82 10*3/uL 1.88-7.09 L (test code = 7004209087) IMM GRAN x10^3 (test <0.03 0-0.06 code = 6135354109) LYMPH x10^3 (test code 1.31 10*3/uL 1.32-3.29 L = 731-0) MONO x10^3 (test code 0.21 10*3/uL 0.33-0.92 L = 742-7) EOS x10^3 (test code = <0.03 0.03-0.39 L 711-2) BASO x10^3 (test code <0.03 0.01-0.07 = 704-7) Lab Interpretation Abnormal (test code = 26912-0) [facility] VW [id number] 22:26:13 1. Abnormal changes in the right lower lobe suggestive of pneumonia,including COVID-19 pneumonia. Disclaimer: Generally, the findings on chest imaging in COVID-19 are notspecific, and overlap with other infections, including influenza, H1N1,SARS and MERS.According to the Centers for Disease Control (CDC) and the [place] [employer], viral testing remains the only specific method of diagnosiseven if CXR or CT findings are suggestive of COVID-19. PROCEDURE: CHEST XRAY 1 view, CLINICAL INDICATION: fever, cough , SOB COMPARISON: None FINDINGS: Lungs: An abnormal opacity is seen in the right lower lobe. Left lung isrelatively clear. Pleura: No [...] COVID-19 are notspecific, and overlap with other i nfections, including influenza, H1N1,SARS and MERS.According to the Centers for Disease Control (CDC) and the [employer], viral testing remains the only specific method of diagnosiseven if CXR or CT findings are suggestive of COVID-19.[facility] 21:58:00 Test Item Value Reference Range Interpretation Comments APPEARANCE (test code = Hazy Clear A 6932104084) COLOR (test code = Tsering Yellow A 5291792575) PH (test code = 4.8-8.0 6172905964) SP GRAVITY (test code = 1.003-1.030 9652656449) GLU U QUAL (test code = Normal Normal 6700070959) BLOOD (test code = Negative Negative 0539413563) KETONES (test code = Negative Negative 5452584689) PROTEIN (test code = Negative Negative 2887-8) UROBILIN (test code = 2.0 mg/dL Normal A 3712878058) BILIRUBIN (test code = Negative Negative 2543996923) NITRITE (test code = Negative Negative 2702369732) LEUK KWASI (test code = Negative Negative 0984323123) RBC/HPF (test code = See_Comment [Autom ated message] 3992757198) The system Indicative Software generated this result transmit julita reference range : 0 - 3 HPF. The refe rence range was not u sed to interpret th is result as normal/abnormal . WBC/HPF (test code = See_Comment [Autom ated message] 2586215211) The system [employer]ic[employer] Software generated this result transmit julita reference range : 0 - 5 HPF. The refe rence range was not u sed to interpret th is result as normal/abnormal . BACTERIA (test code = Few Negative A 3431528688) MUCOUS (test code = Marked Negative LPF A 0765310913) SQ EPITH (test code = HPF 1148380459) HYAL CAST (test code = See_Comment [Aut omated message] 1642990987) The system [employer] Software generated this result transmit julita reference range : <=2 LPF. The refere nce range was not u sed to interpret th is result as normal/abnormal . Lab Interpretation (test Abnormal code = 34467-1) [facility]ID NOW RAPID TESTING)2020-04-25 21:42:00 Test Item Value Reference Range Interpretation Comments SARS-CoV-2 Rapid ID NOW Positive Not Detected A (test code = 63713-3) PK (test code = PK) ID NOW COVID-19 Assay is an isothermal nucleic acid amplification test intended for the qualitative detection of nucleic acid from SARS-CoV-2 viral RNA in nasopharyngeal (PROBLEM MANAGER) specimens. It is used under Emergency Use [...] indicated. Lab Interpretation Abnormal (test code = 84389-0) [facility] [id number] 20:58:00 Test Item Value Reference Range Interpretation Comments POCT PREG (test code = 1605) negative On board controls acceptable with present C Line (test code = 3574) POCT PREG LOT # (test code = 3575) [id number] POCT PREG TEST DATE (test 05-07-2021 code = 3576) Lab Interpretation (test code = Normal 88890-3) [facility]"
[2023-05-14 23:13] LABS: Specific Gravity 1.035 (1.005-1.030)
[2023-05-14 23:14] LABS: Urine Bacteria None Seen /HPF (<20); Urine Mucus Slight /HPF (None Seen); Urine RBC <5 /HPF (None Seen)
[2023-05-14] MEDS ORDERED: ONDANSETRON 4 MG/2 ML VIAL ONE (23:33)
[2023-05-14] MEDS ORDERED: NA CHLORIDE 0.9% 1,000 ML ONE (23:34)
[2023-05-14] MEDS ORDERED: FAMOTIDINE 20 MG/2 ML VIAL IV ONE (23:34)
[2023-05-14] MEDS ORDERED: DICYCLOMINE HCL 20 MG/2 ML AMP IM ONE (23:34)
[2023-05-15 00:15] LABS: Absolute Lymphocytes (CBC) 3.1 K/uL (0.7-4.9); Hematocrit 35.7 % (36.0-45.0); MPV 8.3 fL (7.6-11.3); Platelets 262 thou/uL (152-406)
[2023-05-15 00:24] LABS: Albumin 3.4 g/dL (3.4-5.0); Bilirubin Total 0.2 mg/dL (0.2-1.0); Potassium 3.6 mEq/L (3.5-5.1); Protein, Total 7.4 g/dL (6.4-8.2)
[2023-05-15] MEDS ORDERED: KETOROLAC 30 MG/ML INJ ONE (00:39)
--- NOTE | 2023-05-15 02:31 | ER ---
Nurse's Notes [facility] Name: Leah Miller Age: 28 yrs Sex: Female : 1995 Arrival Date: 05/14/2023 Time: 22:39 Bed 13 Private MD: Diagnosis: Other ovarian cysts Presentation: 05/14 22:57 Chief complaint: Patient states: lower abdominal pain of 2 that radiates to back with pf1 nausea,onset 2 weeks ago with frontal headache of pain of 6,onset 3 days. Patient stated [facility] was 2 weeks ago that lasted for 1 day. Coronavirus screen: Vaccine status: Patient reports being unvaccinated. Client denies travel out of the [place] in the last 14 days. Client presents with at least one sign or symptom that may indicate coronavirus-19. Ebola Screen: Patient negative for fever greater than or equal to 101.5 degrees Fahrenheit, and additional compatible Ebola Virus Disease symptoms. Initial Sepsis Screen: Does the patient meet any 2 criteria? HR > 90 bpm. No. Patient's initial sepsis screen is negative. Does the patient have a suspected source of infection? No. Patient's initial sepsis screen is negative. Risk Assessment: Do you want to hurt yourself or someone else? Patient reports no desire to harm self or others. 22:57 Method Of Arrival: Ambulatory pf1 22:57 Acuity: DEYSI 3 pf1 22:57 Onset of symptoms was May 14, 2023. ha1 Triage Assessment: 22:48 General: Appears comfortable, Behavior is calm, cooperative. Pain: Complains of pain in ha1 back of head and abdomen Pain does not radiate. Pain currently is 8 out of 10 on a pain scale. Quality of pain is described as crampy, throbbing. Neuro: Level of Consciousness is awake, alert, obeys commands, Oriented to person, place, time, situation. Neuro: Reports headache. Cardiovascular: Patient's skin is warm and dry. Respiratory: Airway is patent Respiratory effort is even, unlabored, Respiratory pattern is regular, symmetrical. GI: Abdomen is round non-distended, Bowel sounds present X 4 quads. Reports cramping, nausea. : No signs and/or symptoms were reported regarding the genitourinary system. Derm: Skin is pink, warm \T\ dry. Musculoskeletal: Circulation, motion, and sensation intact. Historical: - Allergies: 23:01 No Known Allergies; pf1 - PMHx: 23:01 diabetes mellitus; pf1 - PSHx: 23:01 [place] teeth extraction; pf1 - Immunization history:: Adult Immunizations up to date, Client reports having NOT received the Covid vaccine. Last tetanus immunization: > 10 years ago Flu vaccine is not up to date. - Social history:: Smoking status: Patient denies any tobacco usage or history of. Patient uses alcohol, occasionally. Patient/guardian denies using street drugs. Screenin:48 [facility] ED Fall Risk Assessment (Adult) History of falling in the last 3 months, ha1 including since admission No falls in past 3 months (0 pts) Confusion or Disorientation No (0 pts) Intoxicated or Sedated No (0 pts) Impaired Gait No (0 pts) Mobility Assist Device Used No (0 pt) Altered Elimination No (0 pt) Score/Fall Risk Level 0 - 2 = Low Risk Oriented to surroundings, Maintained a safe environment, Educated pt \T\ family on fall prevention, incl call for assistance when getting out of bed. Abuse screen: Denies threats or abuse. Denies injuries from another. Nutritional screening: No deficits noted. Tuberculosis screening: No symptoms or risk factors identified. Assessment: 22:48 Reassessment: see triage assessment. ha1 23:30 Reassessment: Patient and/or family updated on plan of care and expected duration. Pain ha1 level reassessed. Patient is alert, oriented x 3, equal unlabored respirations, skin warm/dry/pink. 05/15 00:50 Reassessment: Patient and/or family updated on plan of care and expected duration. Pain ha1 level reassessed. Patient is alert, oriented x 3, equal unlabored respirations, skin warm/dry/pink. Patient states feeling better. 01:50 Reassessment: Patient and/or family updated on plan of care and expected duration. Pain ha1 level reassessed. Patient is alert, oriented x 3, equal unlabored respirations, skin warm/dry/pink. pain 2/10 Patient states feeling better. Patient states symptoms have improved. Vital Signs: 05/14 22:57 BP 136 / 94; Pulse 96; Resp 16; Temp 97.9; Pulse Ox 98% on R/A; Weight 111.13 kg; pf1 Height 5 ft. 11 in. ; Pain 6/10; 23:00 BP 139 / 80; Pulse 81; Resp 17 S; Pulse Ox 100% on R/A; ha1 05/15 00:00 BP 106 / 62; Pulse 73; Resp 17 S; Pulse Ox 100% on R/A; ha1 01:00 BP 115 / 80; Pulse 72; Resp 17 S; Pulse Ox 100% on R/A; ha1 05/14 22:57 Body Mass Index 34.17 (111.13 kg, 180.34 cm) pf1 05/14 22:57 Pain Scale: Adult pf1 ED Course: 05/14 22:44 Patient arrived in ED. kj1 22:45 Chencho Meza PA is PHCP. cp 22:45 Gerardo Paez MD is Attending Physician. cp 22:48 Arm band placed on right wrist. ha1 22:48 Patient has correct armband on for positive identification. Placed in gown. Bed in low ha1 position. Call light in reach. Side rails up X 1. Adult w/ patient. 23:01 Triage completed. pf1 23:20 Inserted saline lock: 22 gauge in left antecubital area, using aseptic technique. Blood ha1 collected. 23:56 Aubree Brooks, RN is Primary Nurse. ha1 23:56 CBC with Diff Sent. ha1 23:56 CMP Sent. ha1 23:56 Lipase Sent. ha1 05/15 00:23 CMP Sent. ha1 00:23 Lipase Sent. ha1 01:37 CT Abd/Pelvis - IV Contrast Only In Process Unspecified. EDMS 02:29 Jenifer Campa MD is Referral Physician. cp 02:50 Provided Education on: follow ups. ha1 02:57 No provider procedures requiring assistance completed. ha1 02:57 Patient did not have IV access during this emergency room visit. ha1 Administered Medications: 05/14 23:25 Drug: NS 0.9% IV 1000 ml Route: IV; Rate: 1 bolus; Site: left antecubital; ha1 23:25 Drug: Famotidine IVP 20 mg Route: IVP; Site: left antecubital; ha1 05/15 00:00 Follow up: Response: No adverse reaction ha1 05/14 23:28 Drug: Ondansetron IVP 4 mg Route: IVP; Site: left antecubital; ha1 05/15 00:00 Follow up: Response: No adverse reaction; Nausea is decreased ha1 05/14 23:40 Drug: Dicyclomine IM 20 mg Route: IM; Site: right ventrogluteal; ha1 05/15 01:00 Follow up: Response: No adverse reaction ha1 00:33 Drug: Ketorolac IVP 15 mg Route: IVP; Site: left antecubital; ha1 01:00 Follow up: Response: No adverse reaction; Pain is decreased ha1 02:32 Drug: fentaNYL (PF) IVP 25 mcg Route: IVP; Site: left forearm; ha1 02:45 Follow up: Response: No adverse reaction; Pain is decreased; RASS: Alert and Calm (0) ha1 Medication: 05:00 VIS not applicable for this client. ha1 Outcome: 02:30 Discharge ordered by MD. mahsa 02:57 Patient left the ED. ha1 02:57 Discharged to home ambulatory, with family. 1 02:57 Condition: stable 02:57 Discharge instructions given to patient, family, Instructed on discharge instructions, follow up and referral plans. medication usage, Demonstrated understanding of instructions, follow-up care, medications, Prescriptions given X 2. Signatures: Dispatcher [employer] EDMS Chencho Meza PA PA cp Jackson, Kandis kj1 Aubree Brooks, RN RN ha1 Xin Shah RN RN pf1
--- NOTE | 2023-05-15 02:31 | EDPHYS ---
Physician Documentation [facility] Name: Leah Miller Age: 28 yrs Sex: Female : 1995 Arrival Date: 05/14/2023 Time: 22:39 Bed 13 Private MD: ED Physician Gerardo Paez HPI: 05/14 23:00 This 28 yrs old Female presents to ER via Ambulatory with complaints of cp Abdominal Cramping - POSSIBLE . 23:00 The patient presents with abdominal pain in the lower abdomen. cp 23:00 Onset: The symptoms/episode began/occurred 2 week(s) ago. The symptoms radiate to low cp back. Associated signs and symptoms: Pertinent positives: headache, nausea, Pertinent negatives: anorexia, blood in stools, constipation, diarrhea, dysuria, fever, vaginal discharge, vomiting. The symptoms are described as crampy. Severity of pain: in the emergency department the pain is unchanged despite home interventions. 23:00 Patient reports vaginal bleeding for 1 day 2 weeks ago which was abnormal. Patient cp reports possibility of . Historical: - Allergies: 23:01 No Known Allergies; pf1 - PMHx: 23:01 diabetes mellitus; pf1 - PSHx: 23:01 [place] teeth extraction; pf1 - Immunization history:: Adult Immunizations up to date, Client reports having NOT received the Covid vaccine. Last tetanus immunization: > 10 years ago Flu vaccine is not up to date. - Social history:: Smoking status: Patient denies any tobacco usage or history of. Patient uses alcohol, occasionally. Patient/guardian denies using street drugs. ROS: 23:05 Constitutional: Negative for body aches, chills, fever, poor PO intake. cp 23:05 Eyes: Negative for injury, pain, redness, and discharge. cp 23:05 ENT: Negative for drainage from ear(s), ear pain, sore throat, difficulty swallowing, difficulty handling secretions. 23:05 Cardiovascular: Negative for chest pain, edema, palpitations. 23:05 Respiratory: Negative for cough, shortness of breath, wheezing. 23:05 Abdomen/GI: Positive for abdominal pain, nausea, abdominal cramps, of the right lower quadrant and left lower quadrant, Negative for vomiting, diarrhea, constipation, anorexia, black/tarry stool, rectal bleeding. 23:05 Back: Positive for radiated pain, of the low back area. 23:05 : Negative for urinary symptoms, hematuria, vaginal bleeding, vaginal discharge. 23:05 Neuro: Positive for headache, Negative for altered mental status, numbness, weakness. 23:05 All other systems are negative. Exam: 23:15 Constitutional: The patient appears in no acute distress, alert, awake, non-toxic, well cp developed, well nourished. 23:15 Head/Face: Normocephalic, atraumatic. cp 23:15 Eyes: Periorbital structures: appear normal, Conjunctiva: normal, no exudate, no injection, Sclera: no appreciated abnormality, Lids and lashes: appear normal, bilaterally. 23:15 ENT: External ear(s): are unremarkable, Nose: is normal, Mouth: Lips: moist, Oral mucosa: pink and intact, moist, Posterior pharynx: is normal, airway is patent, no erythema, no exudate. 23:15 Neck: ROM/movement: is normal, is supple, without pain, no range of motions limitations. 23:15 Chest/axilla: Inspection: normal. 23:15 Cardiovascular: Rate: normal, Rhythm: regular. 23:15 Respiratory: the patient does not display signs of respiratory distress, Respirations: normal, no use of accessory muscles, no retractions, labored breathing, is not present, Breath sounds: are clear throughout, no decreased breath sounds, no stridor, no wheezing. 23:15 Abdomen/GI: Inspection: abdomen appears normal, Bowel sounds: active, all quadrants, Palpation: soft, in all quadrants, moderate abdominal tenderness, in the right lower quadrant and left lower quadrant, rebound tenderness, is not appreciated, involuntary guarding, is not appreciated. 23:15 Back: pain, that is mild, of the low back area, ROM is normal, CVA tenderness, is absent. 23:15 Skin: no rash present. 23:15 Neuro: Orientation: to person, place \T\ time. Mentation: is normal. Vital Signs: 22:57 BP 136 / 94; Pulse 96; Resp 16; Temp 97.9; Pulse Ox 98% on R/A; Weight 111.13 kg; pf1 Height 5 ft. 11 in. ; Pain 6/10; 23:00 BP 139 / 80; Pulse 81; Resp 17 S; Pulse Ox 100% on R/A; ha1 05/15 00:00 BP 106 / 62; Pulse 73; Resp 17 S; Pulse Ox 100% on R/A; ha1 01:00 BP 115 / 80; Pulse 72; Resp 17 S; Pulse Ox 100% on R/A; ha1 05/14 22:57 Body Mass Index 34.17 (111.13 kg, 180.34 cm) pf1 05/14 22:57 Pain Scale: Adult pf1 MDM: 05/14 22:50 Patient medically screened. 05/15 00:00 Differential diagnosis: appendicitis, non-specific abd pain, Ovarian Torsion, Pelvic cp Inflammatory Disease, Pyelonephritis, Ureterolithiasis, urinary tract infection. 02:30 Data reviewed: vital signs, nurses notes, lab test result(s), radiologic studies, CT cp scan. 02:30 I considered the following discharge prescriptions or medication management in the emergency department Medications were administered in the Emergency Department. See MAR. Counseling: I had a detailed discussion with the patient and/or guardian regarding: the historical points, exam findings, and any diagnostic results supporting the discharge/admit diagnosis, lab results, radiology results, the need for outpatient follow up, for definitive care, an OB/Gyne specialist. Response to treatment: the patient's symptoms have markedly improved after treatment, and as a result, I will discharge patient. Special discussion: Based on the patient's Hx, exam, and Dx evaluation, there is no indication for emergent surgery or inpatient Tx. It is understood by the patient/guardian that if the Sx's persist or worsen they need to return immediately for re-evaluation. 05/14 22:46 Order name: Urine Microscopic Only; Complete Time: 23:43 05/14 22:46 Order name: PREGU; Complete Time: 23:43 05/14 23:43 Interpretation: Urine SG 1.035; Reviewed. 05/14 23:10 Order name: CBC with Diff; Complete Time: 00:26 05/14 23:10 Order name: CMP; Complete Time: 00:26 cp 05/14 23:10 Order name: Lipase; Complete Time: 00:26 05/15 00:04 Order name: Glucose, Ancillary Testing; Complete Time: 00:14 EDMS 05/15 00:14 Interpretation: Reviewed. 05/15 00:14 Order name: Glucose, Ancillary Testing EDMS 05/15 00:28 Order name: CT Abd/Pelvis - IV Contrast Only cp 05/14 23:10 Order name: IV Saline Lock; Complete Time: 23:56 cp 05/14 23:10 Order name: Labs collected and sent; Complete Time: 23:56 cp 05/14 23:10 Order name: Accucheck Blood Glucose; Complete Time: 23:56 cp Administered Medications: 05/14 23:25 Drug: NS 0.9% IV 1000 ml Route: IV; Rate: 1 bolus; Site: left antecubital; ha1 23:25 Drug: Famotidine IVP 20 mg Route: IVP; Site: left antecubital; ha1 05/15 00:00 Follow up: Response: No adverse reaction [facility] 05/14 23:28 Drug: Ondansetron IVP 4 mg Route: IVP; Site: left antecubital; ha1 05/15 00:00 Follow up: Response: No adverse reaction; Nausea is decreased [facility] 05/14 23:40 Drug: Dicyclomine IM 20 mg Route: IM; Site: right ventrogluteal; ha1 05/15 01:00 Follow up: Response: No adverse reaction ha1 00:33 Drug: Ketorolac IVP 15 mg Route: IVP; Site: left antecubital; ha1 01:00 Follow up: Response: No adverse reaction; Pain is decreased ha1 02:32 Drug: fentaNYL (PF) IVP 25 mcg Route: IVP; Site: left forearm; ha1 02:45 Follow up: Response: No adverse reaction; Pain is decreased; RASS: Alert and Calm (0) ha1 Disposition Summary: 05/15/23 02:30 Discharge Ordered Location: Home cp Problem: new cp Symptoms: have improved cp Condition: Stable cp Diagnosis - Other ovarian cysts cp Followup: cp - With: Jenifer Campa MD - When: 1 week - Reason: Recheck today's complaints Discharge Instructions: - Discharge Summary Sheet cp - Ovarian Cyst cp Forms: - Medication Reconciliation Form cp - Thank You Letter cp - Antibiotic Education cp - Prescription Opioid Use cp - Patient Portal Instructions cp Prescriptions: - Diclofenac Sodium 75 mg Oral Tablet Sustained Release - take 1 tablet by ORAL route 2 times per day; 30 tablet; Refills: 0, Product cp Selection Permitted - Tramadol 50 mg Oral Tablet - take 1 tablet by ORAL route every 8 hours as needed; 12 tablet; Refills: 0, cp Product Selection Permitted Addendum: 05/16/2023 04:06 Co-signature as Attending Physician, Gerardo Paez MD I agree with the assessment s p4 and plan of care. I reviewed the patient's care provided by the Advanced Practice Provider and agree with the diagnosis and treatment plan. Signatures: Dispatcher [employer] EDPR Chencho Meza PA PA cp Aubree Brooks RN RN ha1 Xin Shah RN RN pf1 Gerardo Paez MD MD sp4 Corrections: (The following items were deleted from the chart) 05/15 00:39 00:28 Pelvis Complete+US.RAD.BRZ ordered. [facility] 00:44 00:33 LACTATE+C.LAB.BRZ ordered. [facility] 00:44 00:33 BLOOD CULTURE*+BA.LAB.BRZ ordered. [facility] 05/16 02:15 05/14 23:00 Associated signs and symptoms: Pertinent positives: headache, Pertinent cp negatives: anorexia, blood in stools, constipation, diarrhea, dysuria, fever, vaginal discharge, vomiting, cp
[2023-05-15] MEDS ORDERED: FENTANYL CITR 100 MCG/2 ML ONE (02:55)
[2023-05-15 03:19] VITALS: TEMP 97.9
[2023-05-15 03:20] VITALS: O2SAT 100
[2023-05-15 03:22] VITALS: BP 115/80
--- NOTE | 2023-05-15 20:13 | RAD REPORT ---
EXAM DESCRIPTION: CT Abdomen and Pelvis With Intravenous Contrast CLINICAL HISTORY: The patient is 28 years old and is Female; lower abdomen pain TECHNIQUE: Axial computed tomography images of the abdomen and pelvis with intravenous contrast. S agittal and coronal reformatted images were created and reviewed. This CT exam was performed using one or more of the following dose reduction techniques: automated exposure control, adjustment of t he mA and/or kV according to patient size, and/or use of iterative reconstruction technique. COMPARISON: No relevant prior studies available. FINDINGS: LUNG BASES: Unremarkable. No mass. No consolidation. ABDOMEN: LIVER: The liver is enlarged and mildly fatty. GALLBLADDER AND BILE DUCTS: The gallbladder is contracted. PANCREAS: No ductal dilation. No mass. SPLEEN: Unremarkable. ADRENALS: Unremarkable. No mass. KIDNEYS AND URETERS: Unremarkable. The kidneys enhance symmetrically. No obstructing renal or ure teral calculus is seen. No hydronephrosis or hydroureter. No perinephric fluid or stranding. STOMACH AND BOWEL: The stomach is distended with food contents and air. The small bowel is relati vely normal in caliber. A moderate amount stool is present throughout colon. No dilated loops of edin l are seen. There is no bowel obstruction. PELVIS: APPENDIX: The appendix is normal in caliber without surrounding inflammation. BLADDER: Unremarkable. No mass. REPRODUCTIVE: A 3 cm right ovarian lesion containing fat density and soft tissue density is prese nt suggestive of a dermoid. The uterus and left ovary are normal. ABDOMEN and PELVIS: INTRAPERITONEAL SPACE: Unremarkable. No free air. No significant fluid collection. BONES/JOINTS: No acute fracture. SOFT TISSUES: Fat-containing umbilical hernia is present. VASCULATURE: Unremarkable. No abdominal aortic aneurysm. LYMPH NODES: Unremarkable. No enlarged lymph nodes. OTHER FINDINGS: Calcified disc bulge at L4-L5 is present causing effacement upon the anterior the kusum sac. IMPRESSION: Findings suggest right ovarian dermoid. Electronically signed by: Merline Fabian MD 05/15/2023 1:50 AM CDT Due to temporary technical issues with the PACS/Fluency reporting system, reports are being signed by the in house radiologists without review as a courtesy to insure prompt reporting. The interpreting radiologist is fully responsible for the content of the report.
== END 2023-05-15 02:57 | disposition home or self-care (01) ==
LOC: ER 22:39
DX: N83.291 Other ovarian cyst, right side (principal); R10.32 Left lower quadrant pain; R10.31 Right lower quadrant pain; R11.0 Nausea; R51.9 Headache, unspecified; N93.9 Abnormal uterine and vaginal bleeding, unspecified; E11.9 Type 2 diabetes mellitus without complications
CPT/HCPCS: 85025; 36415; 81025; 82947; 81015; 83690; 80053; 74177; Q9967; J0500; J3010; J2405; J7030